=== PATIENT | female | born 1935 | race Two or more races ===

== ENCOUNTER 2016-05-21 16:28 | Inpatient (IN) | payer MEDICARE ==
[~2016-05-21] VITALS: Ht 147.3 cm; Wt 47.2 kg
[~2016-05-21 16:28] MED LIST: ACET-868 PO; CYAN50LO PO; DIAZ5TAB PO; DOCU-25 PO; ESTR42.5 VG; LACT1CAP69 PO; LOSA25TA13 PO; METH1TAB30 PO; METO-302 PO; QUET25TA PO
[2016-05-21] MEDS ORDERED: CEPH500C2 PO ×2 (16:42→16:52)
[2016-05-21] MEDS ORDERED: ZOLP5TAB7 PO (16:42)
[2016-05-21] MEDS ORDERED: CYAN100T3 PO (16:42)
[2016-05-21] MEDS ORDERED: MAGN400O6 PO (16:42)
[2016-05-21] MEDS ORDERED: HYDR-3326 PO (16:42)
[2016-05-21] MEDS ORDERED: PANT40TA4 PO (16:42)
[2016-05-21] MEDS ORDERED: ONDA4TAB5 PO (16:42)
[2016-05-21] MEDS ORDERED: MAG30ORA PO (16:42)
[2016-05-21] MEDS ORDERED: ALLA266C2 TP (16:43)
[2016-05-21] MEDS ORDERED: MAG HYDROX/AL HYDROX/SIMETH 30 ML UDC PO PRN ×2 (17:00→17:30)
[2016-05-21] MEDS ORDERED: MAGNESIUM HYDROXIDE 30 ML UDC PO PRN ×2 (17:00→17:30)
[2016-05-21] MEDS ORDERED: HYDROCODONE/APAP 5/325MG 1 EACH TABLET PO PRN (17:00)
[2016-05-21] MEDS ORDERED: ACETAMINOPHEN 325 MG TABLET PO PRN ×2 (17:00→17:30)
[2016-05-21] MEDS: METOPROLOL SUCCINATE 25 MG TAB.SR.24H PO SCH (17:30)
[2016-05-21] MEDS ORDERED: ONDANSETRON 4 MG TAB.RAPDIS PO PRN (17:30)
[2016-05-21 18:00] VITALS: BP 138/77
[2016-05-21 20:00] VITALS: BP 138/77
[2016-05-21] MEDS ORDERED: CEPHALEXIN MONOHYDRATE 500 MG CAPSULE PO SCH ×2 (21:00)
[2016-05-21] MEDS: QUETIAPINE FUMARATE 25 MG TABLET PO SCH (21:24)
[2016-05-21] MEDS: DOCUSATE SODIUM 100 MG CAPSULE PO SCH (21:24)
[2016-05-21] MEDS: DIVALPROEX SODIUM 125 MG TABLET.DR PO SCH (21:24)
[2016-05-22] MEDS: PANTOPRAZOLE 40 MG TABLET.DR PO SCH (07:30)
[2016-05-22 08:00] VITALS: BP 108/52
[2016-05-22 08:02] LABS: ALBUMIN 3.6 g/dL (3.4-5.0); BILIRUBIN,TOTAL 0.4 mg/dL (0.2-1.0); CALCIUM, SERUM 9.1 mg/dL (8.5-10.1); CREATININE 2.6 mg/dL (0.6-1.3); POTASSIUM 3.9 mmol/L (3.5-5.1)
[2016-05-22] MEDS ORDERED: LOSARTAN POTASSIUM 25 MG TABLET PO SCH (09:00)
[2016-05-22] MEDS: METOPROLOL SUCCINATE 25 MG TAB.SR.24H PO SCH ×2 (09:00→17:00)
[2016-05-22] MEDS: CYANOCOBALAMIN 100 MCG TABLET PO SCH (09:00)
[2016-05-22] MEDS: DIVALPROEX SODIUM 125 MG TABLET.DR PO SCH ×2 (09:00→22:35)
[2016-05-22] MEDS: CEPHALEXIN MONOHYDRATE 250 MG CAPSULE PO SCH (09:00)
[2016-05-22] MEDS: QUETIAPINE FUMARATE 25 MG TABLET PO SCH ×2 (09:00→22:35)
[2016-05-22 16:00] VITALS: BP 131/72
[2016-05-22] MEDS: DOCUSATE SODIUM 100 MG CAPSULE PO SCH (22:35)
[2016-05-22] MEDS: TEMAZEPAM 7.5 MG CAPSULE PO PRN (22:36)
[2016-05-23] MEDS: PANTOPRAZOLE 40 MG TABLET.DR PO SCH (07:30)
[2016-05-23] MEDS: CYANOCOBALAMIN 100 MCG TABLET PO SCH (09:00)
[2016-05-23] MEDS: QUETIAPINE FUMARATE 25 MG TABLET PO SCH (09:00)
[2016-05-23] MEDS: METOPROLOL SUCCINATE 25 MG TAB.SR.24H PO SCH ×2 (09:00→17:00)
[2016-05-23] MEDS: DIVALPROEX SODIUM 125 MG TABLET.DR PO SCH (09:00)
[2016-05-23] MEDS: CEPHALEXIN MONOHYDRATE 250 MG CAPSULE PO SCH (09:00)
[2016-05-23 09:38] VITALS: BP 141/93
[2016-05-23 13:47] LABS: BASOPHILS % (AUTO) 0.5 % (0.0-2.0); DIFF TOTAL % 100 %; EOSINOPHILS % (AUTO) 0.5 % (0.0-6.0); HEMATOCRIT 31 % (33-45); HEMOGLOBIN 10.2 g/dL (11.5-14.8); LYMPHOCYTES # (AUTO) 1.1 /CMM (0.8-4.8); MEAN CORPUSCULAR HEMOGLOBIN 31 PG (26.0-33.0); MEAN CORPUSCULAR HGB CONC 34 g/dl (31.0-36.0); MEAN CORPUSCULAR VOLUME 93 fL (82-100); MONOCYTES # (AUTO) 0.6 /CMM (0.1-1.30); MONOCYTES % (AUTO) 8.1 % (2.0-12.0); NEUTROPHILS % (AUTO) 76.9 % (43.0-81.0); PLATELET COUNT (AUTO) 325 /CMM (150-450); RED BLOOD CELL COUNT(AUTO) 3.26 MIL/uL (4.0-5.2); WHITE BLOOD COUNT (AUTO) 7.8 K/uL (4.3-11.0)
[2016-05-23 13:51] LABS: CALCIUM, SERUM 9.2 mg/dL (8.5-10.1); CREATININE 2.6 mg/dL (0.6-1.3); PHOSPHORUS 3.8 mg/dL (2.5-4.9); POTASSIUM 4.2 mmol/L (3.5-5.1)
[2016-05-23 16:55] VITALS: BP 126/78
[2016-05-23] MEDS: DIVALPROEX SODIUM 125 MG CAP.SPRINK PO SCH ×3 (17:19→21:13)
[2016-05-23] MEDS ORDERED: OLANZAPINE 10 MG VIAL IM ONE (17:30)
[2016-05-23 19:46] VITALS: BP 139/81
[2016-05-23] MEDS: OLANZAPINE 5 MG/TAB.RAPDIS PO SCH (20:24)
[2016-05-23] MEDS: DOCUSATE SODIUM 100 MG CAPSULE PO SCH (21:14)
[2016-05-23] MEDS: TEMAZEPAM 7.5 MG CAPSULE PO PRN (22:10)
[2016-05-24] MEDS: PANTOPRAZOLE 40 MG TABLET.DR PO SCH (07:30)
[2016-05-24 08:00] VITALS: BP 155/74
[2016-05-24] MEDS: OLANZAPINE 5 MG/TAB.RAPDIS PO SCH ×3 (08:54→21:00)
[2016-05-24] MEDS: DIVALPROEX SODIUM 125 MG CAP.SPRINK PO SCH ×4 (08:54→22:20)
[2016-05-24] MEDS: CEPHALEXIN MONOHYDRATE 250 MG CAPSULE PO SCH ×2 (08:54→09:00)
[2016-05-24] MEDS: CYANOCOBALAMIN 100 MCG TABLET PO SCH ×2 (08:54→09:00)
[2016-05-24] MEDS: METOPROLOL SUCCINATE 25 MG TAB.SR.24H PO SCH ×3 (08:55→17:00)
[2016-05-24 16:00] VITALS: BP 134/80
[2016-05-24 20:00] VITALS: BP 135/47
[2016-05-24] MEDS: DOCUSATE SODIUM 100 MG CAPSULE PO SCH (22:20)
[2016-05-24] MEDS: TEMAZEPAM 7.5 MG CAPSULE PO PRN (22:20)
[2016-05-25] MEDS: LORAZEPAM 0.5 MG TABLET PO PRN (01:26)
[2016-05-25] MEDS: PANTOPRAZOLE 40 MG TABLET.DR PO SCH (07:30)
[2016-05-25 08:00] VITALS: BP 138/75
[2016-05-25] MEDS: OLANZAPINE 5 MG/TAB.RAPDIS PO SCH ×2 (09:00→21:08)
[2016-05-25] MEDS: METOPROLOL SUCCINATE 25 MG TAB.SR.24H PO SCH ×2 (09:00→17:00)
[2016-05-25] MEDS: CEPHALEXIN MONOHYDRATE 250 MG CAPSULE PO SCH (09:00)
[2016-05-25] MEDS: CYANOCOBALAMIN 100 MCG TABLET PO SCH (09:00)
[2016-05-25] MEDS: DIVALPROEX SODIUM 125 MG CAP.SPRINK PO SCH ×3 (09:00→21:08)
[2016-05-25 16:00] VITALS: BP 162/85
[2016-05-25] MEDS ORDERED: OLANZAPINE 10 MG VIAL IM ONE (16:00)
[2016-05-25 19:54] VITALS: BP 155/76
[2016-05-25] MEDS: TEMAZEPAM 7.5 MG CAPSULE PO PRN (21:08)
[2016-05-25] MEDS: DOCUSATE SODIUM 100 MG CAPSULE PO SCH (21:08)
[2016-05-26 06:58] LABS: BASOPHILS % (AUTO) 0.4 % (0.0-2.0); DIFF TOTAL % 100 %; EOSINOPHILS # (AUTO) 0.2 /CMM (0.0-0.7); EOSINOPHILS % (AUTO) 2.4 % (0.0-6.0); HEMATOCRIT 34 % (33-45); HEMOGLOBIN 11.2 g/dL (11.5-14.8); LYMPHOCYTES # (AUTO) 1.2 /CMM (0.8-4.8); LYMPHOCYTES % (AUTO) 13.7 % (20.0-44.0); MEAN CORPUSCULAR HEMOGLOBIN 32 PG (26.0-33.0); MEAN CORPUSCULAR HGB CONC 33 g/dl (31.0-36.0); MEAN CORPUSCULAR VOLUME 95 fL (82-100); MONOCYTES # (AUTO) 0.7 /CMM (0.1-1.30); NEUTROPHILS # (AUTO) 6.5 /CMM (1.8-8.9); NEUTROPHILS % (AUTO) 75.5 % (43.0-81.0); PLATELET COUNT (AUTO) 302 /CMM (150-450); RED BLOOD CELL COUNT(AUTO) 3.55 MIL/uL (4.0-5.2); WHITE BLOOD COUNT (AUTO) 8.6 K/uL (4.3-11.0)
[2016-05-26 07:10] LABS: CALCIUM, SERUM 9.1 mg/dL (8.5-10.1); CREATININE 2.3 mg/dL (0.6-1.3); PHOSPHORUS 3.1 mg/dL (2.5-4.9); POTASSIUM 3.7 mmol/L (3.5-5.1)
[2016-05-26] MEDS: PANTOPRAZOLE 40 MG TABLET.DR PO SCH (07:30)
[2016-05-26 08:00] VITALS: BP 138/72
[2016-05-26] MEDS: CEPHALEXIN MONOHYDRATE 250 MG CAPSULE PO SCH (09:00)
[2016-05-26] MEDS: DIVALPROEX SODIUM 125 MG CAP.SPRINK PO SCH ×3 (09:00→21:08)
[2016-05-26] MEDS: METOPROLOL SUCCINATE 25 MG TAB.SR.24H PO SCH ×2 (09:00→17:00)
[2016-05-26] MEDS: CYANOCOBALAMIN 100 MCG TABLET PO SCH (09:00)
[2016-05-26] MEDS: OLANZAPINE 5 MG/TAB.RAPDIS PO SCH ×2 (09:00→21:07)
[2016-05-26 16:00] VITALS: BP 130/81
[2016-05-26 20:08] VITALS: BP 152/93
[2016-05-26] MEDS: DOCUSATE SODIUM 100 MG CAPSULE PO SCH (21:08)
[2016-05-26] MEDS: LORAZEPAM 0.5 MG TABLET PO PRN (23:58)
[2016-05-26] MEDS: TEMAZEPAM 7.5 MG CAPSULE PO PRN (23:59)
[2016-05-27 08:00] VITALS: BP 148/82
[2016-05-27] MEDS: DIVALPROEX SODIUM 125 MG CAP.SPRINK PO SCH ×3 (08:09→22:00)
[2016-05-27] MEDS: CYANOCOBALAMIN 100 MCG TABLET PO SCH (08:09)
[2016-05-27] MEDS: PANTOPRAZOLE 40 MG TABLET.DR PO SCH (08:09)
[2016-05-27] MEDS: CEPHALEXIN MONOHYDRATE 250 MG CAPSULE PO SCH (08:09)
[2016-05-27] MEDS: OLANZAPINE 5 MG/TAB.RAPDIS PO SCH ×2 (08:09→21:00)
[2016-05-27] MEDS: METOPROLOL SUCCINATE 25 MG TAB.SR.24H PO SCH ×2 (08:11→16:12)
[2016-05-27 16:16] VITALS: BP 115/62
[2016-05-27 20:12] VITALS: BP 146/87
[2016-05-27] MEDS: DOCUSATE SODIUM 100 MG CAPSULE PO SCH (22:00)
[2016-05-28] MEDS: PANTOPRAZOLE 40 MG TABLET.DR PO SCH ×2 (07:30→09:19)
[2016-05-28 07:56] LABS: CALCIUM, SERUM 9.1 mg/dL (8.5-10.1); CREATININE 2.6 mg/dL (0.6-1.3); PHOSPHORUS 3.1 mg/dL (2.5-4.9); POTASSIUM 3.3 mmol/L (3.5-5.1)
[2016-05-28 08:00] VITALS: BP 121/90
[2016-05-28] MEDS: CYANOCOBALAMIN 100 MCG TABLET PO SCH ×2 (09:00→09:19)
[2016-05-28] MEDS: DIVALPROEX SODIUM 125 MG CAP.SPRINK PO SCH ×4 (09:00→21:28)
[2016-05-28] MEDS: CEPHALEXIN MONOHYDRATE 250 MG CAPSULE PO SCH ×2 (09:00→09:19)
[2016-05-28] MEDS: OLANZAPINE 5 MG/TAB.RAPDIS PO SCH ×3 (09:00→21:03)
[2016-05-28] MEDS: METOPROLOL SUCCINATE 25 MG TAB.SR.24H PO SCH ×3 (09:00→17:40)
[2016-05-28 16:00] VITALS: BP 149/86
[2016-05-28] MEDS ORDERED: POTASSIUM CHLORIDE 20 MEQ TAB.PRT.SR PO ONE (17:00)
[2016-05-28 20:00] VITALS: BP 117/80
[2016-05-28] MEDS: DOCUSATE SODIUM 100 MG CAPSULE PO SCH (21:28)
[2016-05-29] MEDS: PANTOPRAZOLE 40 MG TABLET.DR PO SCH (07:44)
[2016-05-29 08:00] VITALS: BP 144/96
[2016-05-29] MEDS: METOPROLOL SUCCINATE 25 MG TAB.SR.24H PO SCH ×2 (09:23→17:17)
[2016-05-29] MEDS: DIVALPROEX SODIUM 125 MG CAP.SPRINK PO SCH ×3 (09:23→22:00)
[2016-05-29] MEDS: CYANOCOBALAMIN 100 MCG TABLET PO SCH (09:23)
[2016-05-29] MEDS: CEPHALEXIN MONOHYDRATE 250 MG CAPSULE PO SCH (09:23)
[2016-05-29] MEDS: OLANZAPINE 5 MG/TAB.RAPDIS PO SCH ×2 (09:23→17:17)
[2016-05-29 10:03] LABS: CALCIUM, SERUM 9.2 mg/dL (8.5-10.1); CREATININE 2.7 mg/dL (0.6-1.3); POTASSIUM 3.9 mmol/L (3.5-5.1)
[2016-05-29] MEDS: LORAZEPAM 0.5 MG TABLET PO PRN (15:01)
[2016-05-29 16:00] VITALS: BP 118/73
[2016-05-29] MEDS ORDERED: LIDOCAINE HCL/PF 1% 30 ML VIAL TP ONE (16:00)
[2016-05-29] MEDS: NEOMY SULF/BACITRAC ZN/POLY 15 GM TUBE TP SCH (18:00)
[2016-05-29 20:24] VITALS: BP 159/61
[2016-05-29] MEDS: DOCUSATE SODIUM 100 MG CAPSULE PO SCH (22:00)
[2016-05-30] MEDS: TEMAZEPAM 7.5 MG CAPSULE PO PRN (00:53)
[2016-05-30 08:00] VITALS: BP 115/50
[2016-05-30] MEDS: CEPHALEXIN MONOHYDRATE 250 MG CAPSULE PO SCH (10:22)
[2016-05-30] MEDS: OLANZAPINE 5 MG/TAB.RAPDIS PO SCH ×3 (10:22→17:11)
[2016-05-30] MEDS: DIVALPROEX SODIUM 125 MG CAP.SPRINK PO SCH ×3 (10:23→20:56)
[2016-05-30] MEDS: CYANOCOBALAMIN 100 MCG TABLET PO SCH (10:23)
[2016-05-30] MEDS: PANTOPRAZOLE 40 MG TABLET.DR PO SCH (10:24)
[2016-05-30] MEDS: METOPROLOL SUCCINATE 25 MG TAB.SR.24H PO SCH ×2 (10:24→17:05)
[2016-05-30] MEDS: NEOMY SULF/BACITRAC ZN/POLY 15 GM TUBE TP SCH (11:31)
[2016-05-30 16:00] VITALS: BP 101/64
[2016-05-30 19:00] VITALS: BP 115/50
[2016-05-30 20:00] VITALS: BP 128/71
[2016-05-30] MEDS: DOCUSATE SODIUM 100 MG CAPSULE PO SCH (20:56)
[2016-05-31 08:00] VITALS: BP 152/58
[2016-05-31] MEDS: PANTOPRAZOLE 40 MG TABLET.DR PO SCH (08:44)
[2016-05-31] MEDS: CEPHALEXIN MONOHYDRATE 250 MG CAPSULE PO SCH (08:44)
[2016-05-31] MEDS: OLANZAPINE 5 MG/TAB.RAPDIS PO SCH ×3 (08:44→16:23)
[2016-05-31] MEDS: METOPROLOL SUCCINATE 25 MG TAB.SR.24H PO SCH ×2 (08:45→16:23)
[2016-05-31] MEDS: CYANOCOBALAMIN 100 MCG TABLET PO SCH (08:45)
[2016-05-31] MEDS: DIVALPROEX SODIUM 125 MG CAP.SPRINK PO SCH ×2 (08:45→16:23)
[2016-05-31] MEDS: NEOMY SULF/BACITRAC ZN/POLY 15 GM TUBE TP SCH (08:47)
[2016-05-31 15:57] VITALS: BP 136/72
[2016-05-31 19:51] VITALS: BP 130/55
[2016-05-31] MEDS: TEMAZEPAM 7.5 MG CAPSULE PO PRN (21:45)
[2016-05-31] MEDS: DOCUSATE SODIUM 100 MG CAPSULE PO SCH (21:45)
[2016-06-01 07:34] LABS: CALCIUM, SERUM 8.5 mg/dL (8.5-10.1); CREATININE 2.6 mg/dL (0.6-1.3); POTASSIUM 4.1 mmol/L (3.5-5.1)
[2016-06-01 08:00] VITALS: BP 136/60
[2016-06-01] MEDS: METOPROLOL SUCCINATE 25 MG TAB.SR.24H PO SCH ×2 (08:23→16:27)
[2016-06-01] MEDS: OLANZAPINE 5 MG/TAB.RAPDIS PO SCH ×3 (08:24→16:27)
[2016-06-01] MEDS: CEPHALEXIN MONOHYDRATE 250 MG CAPSULE PO SCH (08:24)
[2016-06-01] MEDS: PANTOPRAZOLE 40 MG TABLET.DR PO SCH (08:24)
[2016-06-01] MEDS: DIVALPROEX SODIUM 125 MG CAP.SPRINK PO SCH ×2 (08:24→16:27)
[2016-06-01] MEDS: CYANOCOBALAMIN 100 MCG TABLET PO SCH (08:24)
[2016-06-01] MEDS: NEOMY SULF/BACITRAC ZN/POLY 15 GM TUBE TP SCH (08:32)
[2016-06-01] MEDS ORDERED: Z GUARD REMEDY 2 OZ OINT TP PRN (14:00)
[2016-06-01 16:00] VITALS: BP 127/58
[2016-06-01 19:48] VITALS: BP 140/72
[2016-06-01] MEDS: DOCUSATE SODIUM 100 MG CAPSULE PO SCH (21:34)
[2016-06-01] MEDS: TEMAZEPAM 7.5 MG CAPSULE PO PRN (22:15)
[2016-06-02 08:00] VITALS: BP 132/76
[2016-06-02 08:39] VITALS: BP 132/76
[2016-06-02] MEDS: METOPROLOL SUCCINATE 25 MG TAB.SR.24H PO SCH (08:39)
[2016-06-02] MEDS: CEPHALEXIN MONOHYDRATE 250 MG CAPSULE PO SCH (08:39)
[2016-06-02] MEDS: OLANZAPINE 5 MG/TAB.RAPDIS PO SCH ×2 (08:39→12:08)
[2016-06-02] MEDS: CYANOCOBALAMIN 100 MCG TABLET PO SCH (08:39)
[2016-06-02] MEDS: DIVALPROEX SODIUM 125 MG CAP.SPRINK PO SCH (08:39)
[2016-06-02] MEDS: PANTOPRAZOLE 40 MG TABLET.DR PO SCH (08:39)
[2016-06-02] MEDS: NEOMY SULF/BACITRAC ZN/POLY 15 GM TUBE TP SCH (08:43)
== END 2016-06-02 14:00 | disposition home or self-care (01) | DRG 876 ==
LOC: GPS 16:30
PROVIDERS: ADMIT Psychiatry & Neurology Psychiatry; ATTEND Internal Medicine
PROC: 0JBQ0ZZ Excision of Right Foot Subcutaneous Tissue and Fascia, Open Approach (ICD-10-PCS; principal; 2016-05-29)
DX: F29 Unspecified psychosis not due to a substance or known physiological condition (principal); N18.4 Chronic kidney disease, stage 4 (severe); N17.9 Acute kidney failure, unspecified; N39.0 Urinary tract infection, site not specified; E87.0 Hyperosmolality and hypernatremia; F03.91 Unspecified dementia, unspecified severity, with behavioral disturbance; I12.9 Hypertensive chronic kidney disease with stage 1 through stage 4 chronic kidney disease, or unspecified chronic kidney disease; F41.9 Anxiety disorder, unspecified; F32.9 Major depressive disorder, single episode, unspecified; E78.5 Hyperlipidemia, unspecified; Z73.6 Limitation of activities due to disability; D63.8 Anemia in other chronic diseases classified elsewhere; S91.011A Laceration without foreign body, right ankle, initial encounter; X58.XXXA Exposure to other specified factors, initial encounter; Y93.9 Activity, unspecified; Y92.89 Other specified places as the place of occurrence of the external cause; Y99.9 Unspecified external cause status
CPT/HCPCS: 36415; 73630-TC; 80048-TC; 80053-TC; 80164-TC; 83735-TC; 84100-TC; 85025-TC; 87081-TC; A6402; J3490